=== PATIENT | male | born 1955 | race African-American/Black ===

== ENCOUNTER 2016-12-29 08:10 | Emergency (ER) | payer MEDICAID, OTHER ==
[~2016-12-29] VITALS: Ht 185.4 cm; Wt 100.0 kg
[~2016-12-29 08:10] MED LIST: AMLO10TA80 PO; ATEN50TA PO; HYDR25TA PO; LISI-652 PO
[2016-12-29] MEDS ORDERED: ATENOLOL 25MG TABLET PO ONE (09:15)
[2016-12-29 10:34] VITALS: BP 167/104
== END 2016-12-29 11:16 | disposition home or self-care (01) ==
LOC: ER 08:48
DX: I10 Essential (primary) hypertension (principal); Z88.0 Allergy status to penicillin; Z79.899 Other long term (current) drug therapy; Z91.19 Patient's noncompliance with other medical treatment and regimen
CPT/HCPCS: 93005; 99283